=== PATIENT | male | born 1960 | race Caucasian/White ===

== ENCOUNTER 2017-01-21 12:55 | Emergency (ER) | payer OTHER ==
[~2017-01-21] VITALS: Ht 172.7 cm; Wt 100.0 kg
[2017-01-21 12:57] VITALS: BP 157/93; PULSE 68; RESP 20; TEMP 98.4; O2SAT 99
--- NOTE | 2017-01-21 13:04 | PD ---
Physical Exam Time Seen by Provider: 13:03 Narrative 56 y/o male presents after a 4 foot fall which occurred yesterday, c/o pain in neck, head, R arm, R hip. Vital signs reviewed. Seen at triage desk, awaiting bed placement. Data Data Last Documented VS Vital Signs Date Time Temp Pulse Resp B/P Pulse Ox O2 Delivery O2 Flow Rate FiO2 01/21/17 12:57 98.4 68 20 157/93 99 Room Air [facility] Medical Record Reviewed: Yes Supervised Visit with RAVIN: Jimmy Cross January 21, 2017 13:04
--- NOTE | 2017-01-21 13:26 | PD ---
HPI Chief Complaint: Back/ Neck Pain or Injury Time Seen by Provider: 13:21 Travel History International Travel<30 days: No Contact w/Intl Traveler<30days: No Traveled to known affect area: No History of Present Illness HPI Patient is a 48-year-old male presenting to emergency room evaluation of back and neck pain, arm and hip pain on the right secondary to a fall that he sustained yesterday while at work. Patient states he was climbing up onto a 4 foot container when his knee gave out causing him to fall approximately 4 feet onto his right side. He did not lose consciousness, the fall was witnessed but he states that the wind was "knocked out of him". He says it is sore when he tries to turn his head. He denies any numbness or weakness in his extremities, he does report a dull headache radiating from the neck up the back of his head. He took Advil last night and this morning, 2 tablets each time no significant improvement in symptoms. PFSH Past Medical History Medical History: Denies Significant Hx Past Surgical History Other Surgery: Yes (cervical fusion) Social History Alcohol Use: No Tobacco Use: No Substance Use: No Allergies-Medications (Allergen,Severity, Reaction): Coded Allergies: No Known Allergies (Unverified , 01/21/17) Review of Systems Except as stated in HPI: all other systems reviewed are Neg Eyes: No: Blurred Vision HENT: Positive: Headaches, Neck Stiffness, Neck Pain Cardiovascular: No: Chest Pain or Discomfort Respiratory: No: Shortness of Breath Gastrointestinal: No: Nausea, Abdominal Pain Musculoskeletal: Positive: Myalgias, Cramping, Pain Neurologic: No: Weakness, Dizziness, Syncope, Focal Abnormalities Physical Exam Narrative GENERAL: Well-developed, well-nourished, alert male. Resting comfortably in no acute distress. SKIN: Focused skin assessment warm/dry. HEAD: Atraumatic. Normocephalic. EYES: Pupils equal and round. No scleral icterus. No injection or drainage. ENT: No nasal bleeding or discharge. Mucous membranes pink and moist. NECK: Trachea midline. No JVD. Decreased range of motion with rotation to the left and right. Tenderness to palpation on cervical spine. CARDIOVASCULAR: Regular rate and rhythm. No murmur appreciated. RESPIRATORY: No accessory muscle use. Clear to auscultation. Breath sounds equal bilaterally. GASTROINTESTINAL: Abdomen soft, non-tender, nondistended. Hepatic and splenic margins not palpable. MUSCULOSKELETAL: No obvious deformities. No clubbing. No cyanosis. No edema. Tenderness palpation paraspinal musculature in the lumbar region and over lumbar spine. No step-off noted NEUROLOGICAL: Awake and alert. No obvious cranial nerve deficits. Motor grossly within normal limits. Normal speech. PSYCHIATRIC: Appropriate mood and affect; insight and judgment normal. Data Data Last Documented VS Vital Signs Date Time Temp Pulse Resp B/P Pulse Ox O2 Delivery O2 Flow Rate FiO2 01/21/17 12:57 98.4 68 20 157/93 99 Room Air Orders Ketorolac Inj (Toradol Inj) (01/21/17 13:30) Orphenadrine Inj (Norflex Inj) (01/21/17 13:30) Dexamethasone Inj (Decadron Inj) (01/21/17 13:30) Chest, Single Ap (01/21/17 ) Ct Cerv Spine W/O Contrast (01/21/17 ) Ct Lumb Spine W/O Contrast (01/21/17 ) MDM Medical Decision Making Medical Screen Exam Complete: Yes Emergency Medical Condition: Yes Interpretation(s) Vital Signs Date Time Temp Pulse Resp B/P Pulse Ox O2 Delivery O2 Flow Rate FiO2 01/21/17 12:57 98.4 68 20 157/93 99 Room Air Last Impressions Lumbar Spine CT 01/21/17 0000 Signed Impressions: Service Date/Time: Saturday, January 21, 2017 14:07 - CONCLUSION: 1. No fracture or subluxation. 2. No disc herniation or canal stenosis. 3. Atrophic left kidney secondary to renal artery stenosis. Morris Landry MD Chest X-Ray 01/21/17 0000 Signed Impressions: Service Date/Time: Saturday, January 21, 2017 13:37 - CONCLUSION: No acute disease. Morris Landry MD Vital Signs Date Time Temp Pulse Resp B/P Pulse Ox O2 Delivery O2 Flow Rate FiO2 01/21/17 12:57 98.4 68 20 157/93 99 Room Air Differential Diagnosis Fracture versus sprain versus strain versus discogenic pain versus other Narrative Course Patient is a 56-year-old male presenting to emergency for evaluation after he fell 4 feet yesterday at work. Patient is neurovascularly intact, has a history of cervical fusion, CT scan ordered and pending. Chest x-ray shows no acute disease CT scan of cervical spine negative for fracture or subluxation. CT scan of the lumbar spine shows no fracture or subluxation, it does show an atrophic left kidney secondary to renal artery stenosis. This was discussed with patient. He was advised to follow-up with his primary care provider. He reports improvement in his pain with medications that were administered emergency department. He was encouraged to follow-up with his primary doctor. He was advised to continue range of motion exercises, apply warm moist heat to affected areas, avoid bed rest. He verbalized understanding of these instructions. Patient is stable for discharge. Diagnosis Primary Impression: Fall Qualified Code: W19.XXXA - Fall, initial encounter Additional Impressions: Muscle spasm Muscle strain Referrals: Primary Care Physician Patient Instructions: General Instructions, Muscle Spasm (ED), Muscle Strain ( ED) Additional Instructions: Follow-up with your primary doctor Take medications as directed Apply warm moist heat to affected area, continue range of motion exercises, avoid bed rest, avoid exacerbating activities Return to the emergency department for any new or worsening symptoms Med/Other Pt SpecificInfo: Prescription(s) given Scripts Cyclobenzaprine (Flexeril)10 Mg Tab10 Mg PO TID PRN (MUSCLE SPASM) 10 Days Ref 0 Prov:Brittney Rodríguez 01/21/17 Ibuprofen 800 Mg [id number] Mg PO Q6HR PRN (PAIN) #40 TAB Ref 0 Prov:Brittney Rodríguez 01/21/17 Disposition: 01 DISCHARGE HOME Condition: Stable Brittney Rodríguez January 21, 2017 13:26
[2017-01-21] MEDS ORDERED: KETOROLAC TROMETHAMINE 60 MG/2 ML (IM) VIAL IM ONE (13:30)
[2017-01-21] MEDS ORDERED: DEXAMETHASONE SOD PHOS 20 MG/5 ML VIAL IM ONE (13:30)
[2017-01-21] MEDS ORDERED: ORPHENADRINE INJ 60 MG/2 ML AMP IM ONE (13:30)
--- NOTE | 2017-01-21 13:56 | RADRPT ---
EXAM DATE/TIME: 01/21/2017 13:37 [facility] COMPARISON: No previous studies available for comparison. INDICATIONS : Cough. MEDICAL HISTORY : None. SURGICAL HISTORY : None. ENCOUNTER: Initial ACUITY: 1 day PAIN SCORE: 0/10 LOCATION: Bilateral chest FINDINGS: A single view of the chest demonstrates the lungs to be symmetrically aerated without evidence of mas s, infiltrate or effusion. The cardiomediastinal contours are unremarkable. Osseous structures are intact. CONCLUSION: No acute disease. Morris Landry MD on January 21, 2017 at 13:53 Board Certified Radiologist. This report was verified electronically.
[2017-01-21 14:40] VITALS: RESP 20
--- NOTE | 2017-01-21 14:43 | RADRPT ---
EXAM DATE/TIME: 01/21/2017 14:07 [facility] COMPARISON: No previous studies available for comparison. INDICATIONS : Low back pain due to fall. RADIATION DOSE: 27.03 CTDIvol (mGy) MEDICAL HISTORY : None SURGICAL HISTORY : Fusion, cervical. ENCOUNTER: Initial ACUITY: 2 days PAIN SCALE: 5/10 LOCATION: Right lower back. TECHNIQUE: Volumetric scanning of the lumbar spine was performed. Multiplanar reconstructions in the sagittal, coronal and oblique axial planes were performed. Using automated exposure control and adjustment of the mA and/or kV according to patient size, radiation dose was kept as low as reasonably achievable t o obtain optimal diagnostic quality images. FINDINGS: VERTEBRAE: Normal vertebral body height. Very minimal degenerative changes. Anterior endplate osteophytes. Disc spaces are maintained ALIGNMENT: No evidence of subluxation. Atrophic left kidney appears to be related to renal artery stenosis. T12-L1: The thecal sac has a normal diameter. No evidence of disc bulge or protrusion. The neural foramina are patent bilaterally. L1-L2: The thecal sac has a normal diameter. No evidence of disc bulge or protrusion. The neural foramina are patent bilaterally. L2-L3: The thecal sac has a normal diameter. No evidence of disc bulge or protrusion. The neural foramina are patent bilaterally. L3-L4: The thecal sac has a normal diameter. No evidence of disc bulge or protrusion. The neural foramina are patent bilaterally. L4-L5: The thecal sac has a normal diameter. No evidence of disc bulge or protrusion. The neural foramina are patent bilaterally. L5-S1: The thecal sac has a normal diameter. No evidence of disc bulge or protrusion. The neural foramina are patent bilaterally. CONCLUSION: 1. No fracture or subluxation. 2. No disc herniation or canal stenosis. 3. Atrophic left kidney secondary to renal artery stenosis. Morris Landry MD on January 21, 2017 at 14:39 Board Certified Radiologist. This report was verified electronically.
--- NOTE | 2017-01-21 15:24 | RADRPT ---
EXAM DATE/TIME: 01/21/2017 14:02 [facility] COMPARISON: No previous studies available for comparison. INDICATIONS : Neck pain due to fall. RADIATION DOSE: 22.91 CTDIvol (mGy) MEDICAL HISTORY : None SURGICAL HISTORY : Fusion, cervical. ENCOUNTER: Initial ACUITY: 2 days PAIN SCALE: 5/10 LOCATION: Right neck region. TECHNIQUE: Volumetric scanning of the cervical spine was performed. Multiplanar reconstructions in the sagittal, coronal and oblique axial planes were performed. Using automated exposure control and adjustment o f the mA and/or kV according to patient size, radiation dose was kept as low as reasonably achievable to obtain optimal diagnostic quality images. FINDINGS: VERTEBRAE: Normal vertebral body height. Anterior fusion plate and intervertebral disc of a C5-6. ALIGNMENT: No evidence of subluxation. C2-C3: The bony spinal canal is normal in size. No evidence of disc bulge or herniation. The neural forami na are bilaterally patent. C3-C4: Mild broad-based disc bulge without canal stenosis. The neural foramina are bilaterally patent. C4-C5: Small central disc protrusion abuts the thecal sac without canal stenosis. The neural foramina are b ilaterally patent. C5-C6: Anterior fusion plate. The bony spinal canal is normal in size. No evidence of disc bulge or herniat ion. The neural foramina are bilaterally patent. C6-C7: The bony spinal canal is normal in size. No evidence of disc bulge or herniation. The neural forami na are bilaterally patent. C7-T1: The bony spinal canal is normal in size. No evidence of disc bulge or herniation. The neural forami na are bilaterally patent. CONCLUSION: 1. No fracture or subluxation. 2. Mild broad-based disc bulge C3-4. 3. Small central protrusion at C4-5. Morris Landry MD on January 21, 2017 at 15:20 Board Certified Radiologist. This report was verified electronically.
[2017-01-21] MEDS ORDERED: CYCL1TAB29 PO (15:42)
[2017-01-21] MEDS ORDERED: IBUP800T23 PO (15:42)
== END 2017-01-21 16:00 | disposition home or self-care (01) ==
LOC: NEPD 13:25
DX: M54.2 Cervicalgia (principal); M62.838 Other muscle spasm; W17.89XA Other fall from one level to another, initial encounter; Y93.39 Activity, other involving climbing, rappelling and jumping off; Y99.0 Civilian activity done for income or pay
CPT/HCPCS: 71010; 72125; 72131; 96372; 99285; J1100; J1885; J2360